=== PATIENT | female | born 1985 | race African-American/Black ===

== ENCOUNTER 2016-07-15 12:46 | Emergency (ER) | payer MEDICAID ==
[~2016-07-15] VITALS: Ht 162.6 cm; Wt 115.0 kg
[2016-07-15 14:48] VITALS: BP 141/92
== END 2016-07-15 15:34 | disposition home or self-care (01) ==
LOC: ER 12:47
DX: M54.5 Low back pain (principal); G47.30 Sleep apnea, unspecified; Z88.0 Allergy status to penicillin
CPT/HCPCS: 99281

== ENCOUNTER 2016-09-09 22:48 | Emergency (ER) | payer MEDICAID, OTHER ==
[~2016-09-09] VITALS: Ht 162.6 cm; Wt 115.0 kg
[2016-09-10] MEDS ORDERED: ONDANSETRON HCL 4MG/2ML VIAL IV STA ×2 (01:33→04:37)
[2016-09-10] MEDS ORDERED: ONDANSETRON 4MG ODT PO STA (01:33)
[2016-09-10] MEDS ORDERED: SODIUM CHLORIDE 0.9% 1,000 ML IV ONE (01:33)
[2016-09-10 01:53] LABS: BASOPHILS % 0.7 % (0.0-2.0); HEMATOCRIT. 39.5 % (36.0-48.0); HEMOGLOBIN. 12.8 g/dL (12.0-16.0); LYMPHOCYTES % 27.5 % (20.0-50.0); MEAN CORPUSCULAR HEMOGLOBIN 24.7 pg (28.0-32.0); MEAN CORPUSCULAR VOLUME 76.3 fL (81.0-99.0); MEAN PLATELET VOLUME 6.9 fl (7.4-10.4); MONOCYTES % 8.7 % (2.0-8.0); NEUTROPHILS % 61.1 % (40.0-76.0); PLATELET 306 x1000/uL (130-400); RED BLOOD CELL COUNT 5.18 mill/uL (4.2-5.4); RED CELL DISTRIBUTION WIDTH 15.3 % (11.6-14.6)
[2016-09-10 02:00] LABS: CHLORIDE 106 mEq/L (98-107)
[2016-09-10 02:02] LABS: PROTHROMBIN TIME 10.5 sec
[2016-09-10 02:09] LABS: CARBON DIOXIDE 27 mEq/L (21-32)
[2016-09-10] MEDS ORDERED: MORPHINE SULFATE 4 MG/ML CPJ (NOT FOR IM USE) IV STA ×2 (02:20→04:37)
[2016-09-10 02:35] LABS: CLARITY URINE CLEAR (CLEAR); COLOR URINE YELLOW (YELLOW); GLUCOSE URINE NEGATIVE (NEGATIVE); KETONES URINE NEGATIVE (NEGATIVE); LEUKOCYTE ESTERASE URINE NEGATIVE (NEGATIVE); NITRITE URINE NEGATIVE (NEGATIVE); OCCULT BLOOD URINE TRACE (NEGATIVE); PH URINE 6.5 (4.5-8.0); PROTEIN URINE NEGATIVE (NEGATIVE); SPECIFIC GRAVITY URINE 1.021 (1.005-1.030)
[2016-09-10 06:12] VITALS: BP 162/102
[2016-09-10] MEDS ORDERED: IOHEXOL-300 100 ML BOTTLE ONE (14:29)
[2016-09-10] MEDS ORDERED: SODIUM CHLORIDE 0.9% 10ML VIAL ONE (14:29)
== END 2016-09-10 06:13 | disposition home or self-care (01) ==
LOC: ER 22:48
DX: R10.31 Right lower quadrant pain (principal); Z88.0 Allergy status to penicillin
CPT/HCPCS: 36415; 74177; 80053; 81001; 83690; 85025; 85610; 96361; 96374; 96375; 96376; 99285; A4216; J2270; J2405; J7030; Q9967; Z7610

== ENCOUNTER 2017-02-18 22:12 | Emergency (ER) | payer OTHER | END 2017-02-19 00:18 | disposition left against medical advice (07) | LOC: ER 23:54 | DX: R10.9 Unspecified abdominal pain (principal); Z53.21 Procedure and treatment not carried out due to patient leaving prior to being seen by health care provider ==